=== PATIENT | female | born 1935 | race Caucasian/White ===

== ENCOUNTER 2020-05-02 11:51 | Inpatient (IN) | payer OTHER ==
[2020-05-02 12:08] VITALS: BMI 35.5
[2020-05-02 13:46] LABS: URINE APPEARANCE CLEAR; URINE BILIRUBIN NEGATIVE (NEGATIVE); URINE COLOR YELLOW; URINE GLUCOSE (UA) NEGATIVE (NEGATIVE); URINE KETONE 1+ (NEGATIVE); URINE LEUK ESTERASE NEGATIVE (NEGATIVE); URINE NITRITE NEGATIVE (NEGATIVE); URINE PROTEIN TRACE (NEGATIVE)
[2020-05-02 13:51] LABS: BASO % 0.8 % (0-2.0); EOS % 3.3 % (0-4.5); HEMATOCRIT 39.4 % (32.4-45.2); HEMOGLOBIN 13.2 GM/dL (10.7-15.3); MCH 31.8 pg (25.7-33.7); MCHC 33.6 g/dl (32.0-36.0); MEAN CELL VOLUME 94.7 fl (80-96); NEUT % 66.9 % (42.8-82.8); PLATELET COUNT 273 K/MM3 (134-434); RBC 4.16 M/mm3 (3.60-5.2); RDW 12.9 % (11.6-15.6)
[2020-05-02 13:57] LABS: CHLORIDE 107 mmol/L (98-107); SODIUM 140 mmol/L (136-145)
[2020-05-02 13:58] LABS: INR 1.12 (0.83-1.09); PROTHROMBIN TIME (PATIENT) 13.5 SEC (9.7-13.0)
[2020-05-02 13:59] LABS: ALBUMIN 3.3 g/dl (3.4-5.0); ANION GAP 5 MMOL/L (8-16); BLOOD UREA NITROGEN 36.1 mg/dL (7-18); CALCIUM 8.8 mg/dL (8.5-10.1); CO2 28 mmol/L (21-32); GLUCOSE,RANDOM 96 mg/dL (74-106)
[2020-05-02 14:00] LABS: MAGNESIUM 2.2 mg/dL (1.8-2.4)
[2020-05-02 14:01] LABS: ACTIVATED PTT 31.5 SECONDS (25.2-36.5)
[2020-05-02 14:02] LABS: SGOT/AST 96 U/L (15-37); SGPT/ALT 72 U/L (13-61)
[2020-05-02 14:04] LABS: BILIRUBIN,TOTAL 0.8 mg/dL (0.2-1); TOT PROT 6.9 g/dl (6.4-8.2)
[2020-05-02 14:05] LABS: ALK PHOS 82 U/L (45-117)
[2020-05-02 14:18] LABS: CREATININE 1.1 mg/dL (0.55-1.3)
[2020-05-02] MEDS ORDERED: SODIUM CHLORIDE 0.9% 500 ML INFUS.BAG IV ONE (15:49)
[2020-05-02] MEDS ORDERED: LACTATED RINGERS SOLUTION 1000 ML INFUS.BAG IV ONE (15:51)
[2020-05-03] MEDS: SODIUM CHLORIDE 1,000 ML IV SCH ×2 (00:18→10:00)
[2020-05-03] MEDS ORDERED: ACETAMINOPHEN 325 MG TABLET (FP) ONE (01:31)
[2020-05-03] MEDS: ACETAMINOPHEN 325 MG TABLET (FP) PO PRN (01:50)
[2020-05-03 07:00] LABS: BASO % 0.6 % (0-2.0); EOS % 4.3 % (0-4.5); HEMATOCRIT 38.6 % (32.4-45.2); HEMOGLOBIN 12.8 GM/dL (10.7-15.3); LYMPH % 25.4 % (8-40); MCH 31.5 pg (25.7-33.7); MCHC 33.1 g/dl (32.0-36.0); MEAN PLT VOLUME 7.9 fl (7.5-11.1); MONO % 9.1 % (3.8-10.2); NEUT % 60.6 % (42.8-82.8); PLATELET COUNT 251 K/MM3 (134-434); RBC 4.06 M/mm3 (3.60-5.2); WHITE BLOOD COUNT 8.4 K/mm3 (4.0-10.0)
[2020-05-03 07:13] LABS: CHLORIDE 110 mmol/L (98-107); POTASSIUM 3.8 mmol/L (3.5-5.1); SODIUM 143 mmol/L (136-145)
[2020-05-03 07:17] LABS: CALCIUM 8.2 mg/dL (8.5-10.1)
[2020-05-03 07:18] LABS: ANION GAP 6 MMOL/L (8-16); BLOOD UREA NITROGEN 31.1 mg/dL (7-18); CO2 27 mmol/L (21-32); GLUCOSE,RANDOM 92 mg/dL (74-106); MAGNESIUM 2.2 mg/dL (1.8-2.4)
[2020-05-03 07:21] LABS: SGOT/AST 68 U/L (15-37); SGPT/ALT 63 U/L (13-61)
[2020-05-03 07:22] LABS: BILIRUBIN,TOTAL 0.6 mg/dL (0.2-1); TOT PROT 6.2 g/dl (6.4-8.2)
[2020-05-03 07:23] LABS: ALK PHOS 74 U/L (45-117)
[2020-05-04] MEDS: ACETAMINOPHEN 325 MG TABLET (FP) PO PRN
[2020-05-04] MEDS: SODIUM CHLORIDE 1,000 ML IV SCH (00:02)
[2020-05-04 07:17] LABS: BASO % 0.6 % (0-2.0); EOS % 4.3 % (0-4.5); HEMATOCRIT 38.2 % (32.4-45.2); HEMOGLOBIN 12.5 GM/dL (10.7-15.3); LYMPH % 28.9 % (8-40); MCH 31.3 pg (25.7-33.7); MCHC 32.8 g/dl (32.0-36.0); MEAN CELL VOLUME 95.4 fl (80-96); MEAN PLT VOLUME 7.8 fl (7.5-11.1); MONO % 9.8 % (3.8-10.2); NEUT % 56.4 % (42.8-82.8); PLATELET COUNT 246 K/MM3 (134-434); RBC 4.01 M/mm3 (3.60-5.2); RDW 12.8 % (11.6-15.6); WHITE BLOOD COUNT 7.7 K/mm3 (4.0-10.0)
[2020-05-04 07:29] LABS: POTASSIUM 3.7 mmol/L (3.5-5.1)
[2020-05-04 07:34] LABS: CALCIUM 8.4 mg/dL (8.5-10.1)
[2020-05-04 07:38] LABS: CREATININE 0.8 mg/dL (0.55-1.3)
[2020-05-04 08:12] LABS: ALBUMIN 2.8 g/dl (3.4-5.0)
[2020-05-04 08:14] LABS: BILIRUBIN,DIRECT 0.2 mg/dL (0.0-0.2)
[2020-05-04 08:16] LABS: BILIRUBIN,TOTAL 0.7 mg/dL (0.2-1)
[2020-05-04] MEDS ORDERED: PNEUMOC 13-VAL CONJ-DIP CRM/PF 0.5 ML DISP.SYRIN IM ONE (10:00)
[2020-05-04] MEDS ORDERED: FLU VACCINE (FLULAVAL) PF 60 MCG/0.5 ML SYRINGE 2020-2021 IM ONE (10:00)
[2020-05-04] MEDS: ASPIRIN COATED 81 MG TABLET.EC PO SCH (18:05)
[2020-05-04] MEDS: FAMOTIDINE 20 MG TABLET PO SCH (18:05)
[2020-05-05 07:27] LABS: BASO % 0.8 % (0-2.0); EOS % 4.2 % (0-4.5); HEMATOCRIT 37.7 % (32.4-45.2); HEMOGLOBIN 12.6 GM/dL (10.7-15.3); LYMPH % 26.7 % (8-40); MCH 31.7 pg (25.7-33.7); MCHC 33.3 g/dl (32.0-36.0); MEAN CELL VOLUME 95.2 fl (80-96); MEAN PLT VOLUME 7.9 fl (7.5-11.1); MONO % 10.3 % (3.8-10.2); PLATELET COUNT 229 K/MM3 (134-434); RBC 3.96 M/mm3 (3.60-5.2); RDW 13.3 % (11.6-15.6); WHITE BLOOD COUNT 8.7 K/mm3 (4.0-10.0)
[2020-05-05 07:41] LABS: POTASSIUM 3.8 mmol/L (3.5-5.1)
[2020-05-05 07:42] LABS: CALCIUM 8.2 mg/dL (8.5-10.1)
[2020-05-05 07:43] LABS: BLOOD UREA NITROGEN 22.9 mg/dL (7-18)
[2020-05-05 07:46] LABS: CREATININE 0.8 mg/dL (0.55-1.3)
[2020-05-05] MEDS: VERAPAMIL HCL 180 MG E.R. TABLET PO SCH (11:47)
[2020-05-05] MEDS: FAMOTIDINE 20 MG TABLET PO SCH (11:47)
[2020-05-05] MEDS: ASPIRIN COATED 81 MG TABLET.EC PO SCH (11:47)
[2020-05-05] MEDS: ACETAMINOPHEN 325 MG TABLET (FP) PO PRN (23:08)
[2020-05-06 07:22] LABS: BASO % 0.8 % (0-2.0); EOS % 4.6 % (0-4.5); HEMATOCRIT 40.6 % (32.4-45.2); HEMOGLOBIN 13.6 GM/dL (10.7-15.3); MCH 31.7 pg (25.7-33.7); MCHC 33.5 g/dl (32.0-36.0); MEAN CELL VOLUME 94.6 fl (80-96); MONO % 8.8 % (3.8-10.2); NEUT % 55.8 % (42.8-82.8); PLATELET COUNT 264 K/MM3 (134-434); RBC 4.29 M/mm3 (3.60-5.2); RDW 12.9 % (11.6-15.6); WHITE BLOOD COUNT 8.6 K/mm3 (4.0-10.0)
[2020-05-06 07:32] LABS: POTASSIUM 4.1 mmol/L (3.5-5.1)
[2020-05-06 07:43] LABS: CALCIUM 8.5 mg/dL (8.5-10.1)
[2020-05-06 07:44] LABS: BLOOD UREA NITROGEN 16.7 mg/dL (7-18)
[2020-05-06 07:47] LABS: CREATININE 0.7 mg/dL (0.55-1.3)
[2020-05-06] MEDS ORDERED: PT OWN MED DRAWER 7, Y5N ONE (09:54)
[2020-05-06] MEDS: FAMOTIDINE 20 MG TABLET PO SCH (09:56)
[2020-05-06] MEDS: VERAPAMIL HCL 180 MG E.R. TABLET PO SCH (09:56)
[2020-05-06] MEDS: ASPIRIN COATED 81 MG TABLET.EC PO SCH (09:56)
[2020-05-07] MEDS: ASPIRIN COATED 81 MG TABLET.EC PO SCH (09:34)
[2020-05-07] MEDS: VERAPAMIL HCL 180 MG E.R. TABLET PO SCH (09:34)
[2020-05-07] MEDS: FAMOTIDINE 20 MG TABLET PO SCH (09:34)
[2020-05-08] MEDS ORDERED: PT OWN MED DRAWER 7, Y5N ONE (10:14)
[2020-05-08] MEDS: VERAPAMIL HCL 180 MG E.R. TABLET PO SCH (10:29)
[2020-05-08] MEDS: FAMOTIDINE 20 MG TABLET PO SCH (10:29)
[2020-05-08] MEDS: ASPIRIN COATED 81 MG TABLET.EC PO SCH (10:29)
[2020-05-08] MEDS: DONEPEZIL HCL 5 MG TABLET (FP) PO SCH (18:50)
[2020-05-08] MEDS: MEMANTINE HCL 5 MG TABLET (UD) PO SCH (21:25)
[2020-05-09] MEDS ORDERED: PT OWN MED DRAWER 7, Y5N ONE ×2 (08:15→10:06)
[2020-05-09] MEDS: MEMANTINE HCL 5 MG TABLET (UD) PO SCH ×2 (10:07→22:24)
[2020-05-09] MEDS: DONEPEZIL HCL 5 MG TABLET (FP) PO SCH (10:07)
[2020-05-09] MEDS: FAMOTIDINE 20 MG TABLET PO SCH (10:07)
[2020-05-09] MEDS: ASPIRIN COATED 81 MG TABLET.EC PO SCH (10:07)
[2020-05-09] MEDS: VERAPAMIL HCL 180 MG E.R. TABLET PO SCH (10:08)
[2020-05-09] MEDS: SODIUM CHLORIDE 1,000 ML IV SCH (22:24)
[2020-05-10] MEDS: DONEPEZIL HCL 5 MG TABLET (FP) PO SCH (09:17)
[2020-05-10] MEDS: FAMOTIDINE 20 MG TABLET PO SCH (09:17)
[2020-05-10] MEDS: MEMANTINE HCL 5 MG TABLET (UD) PO SCH ×2 (09:17→22:33)
[2020-05-10] MEDS: ASPIRIN COATED 81 MG TABLET.EC PO SCH (09:17)
[2020-05-10] MEDS ORDERED: PT OWN MED DRAWER 7, Y5N ONE (13:37)
[2020-05-10] MEDS: VERAPAMIL HCL 180 MG E.R. TABLET PO SCH (13:40)
[2020-05-11] MEDS: DONEPEZIL HCL 5 MG TABLET (FP) PO SCH (10:08)
[2020-05-11] MEDS: ASPIRIN COATED 81 MG TABLET.EC PO SCH (10:08)
[2020-05-11] MEDS: MEMANTINE HCL 5 MG TABLET (UD) PO SCH (10:08)
[2020-05-11] MEDS: VERAPAMIL HCL 180 MG E.R. TABLET PO SCH (10:08)
[2020-05-11] MEDS: FAMOTIDINE 20 MG TABLET PO SCH (10:08)
[2020-05-11 12:42] VITALS: PULSE 88
[2020-05-11 15:34] VITALS: BP 134/63; TEMP 98.2
== END 2020-05-11 16:39 | disposition home health service (06) | DRG 558 ==
LOC: JER 11:51 → JERBED 18:46 → OBSVTOIN 18:46 → J4W 05-03 20:08
PROVIDERS: ATTEND Internal Medicine
DX: M62.82 Rhabdomyolysis (principal); I47.1 Supraventricular tachycardia; F03.90 Unspecified dementia, unspecified severity, without behavioral disturbance, psychotic disturbance, mood disturbance, and anxiety; E78.5 Hyperlipidemia, unspecified; I10 Essential (primary) hypertension; R55 Syncope and collapse; W19.XXXA Unspecified fall, initial encounter; E66.9 Obesity, unspecified; Z68.35 Body mass index [BMI] 35.0-35.9, adult
CPT/HCPCS: 36415; 70450-TC; 70551-TC; 71045-TC-FY; 72125-TC; 72170-TC-FY; 73502-TC-LT-FY; 73552-TC-LT-FY; 80048; 80053; 80076; 81003; 82550; 82553; 82607; 82746; 83605; 83735; 83880; 84443; 84484; 85025; 85610; 85730; 86780; 86850; 86900; 86901; 87040; 87086; 87186; 90670; 93005; 93010; 93306-TC; 93880-TC; 97116-GP; 97161-GP; 99285-25; C9803; U0003